=== PATIENT | female | born 1965 | race Caucasian/White ===

== ENCOUNTER → 2016-10-22 | Outpatient (CLI) | payer OTHER, MEDICARE ==
--- NOTE | 2016-10-22 14:57 | US ---
EXAMINATION TYPE: US venous doppler duplex LE RT DATE OF EXAM: 10/22/2016 2:31 PM COMPARISON: US CLINICAL HISTORY: 50-year-old female I82.401 ACUTE EMBOLISM AND THROMBOSIS OF DEEP VEINS. Right leg swelling/previous DVT, patient currently on blood thinners and has IVC in place SIDE PERFORMED: Right TECHNIQUE: The lower extremity deep venous system is examined utilizing real time linear array sonog [place] with graded compression, doppler sonography and color-flow sonography. FINDINGS: VESSELS IMAGED: External Iliac Vein (EIV) Common Femoral Vein Deep Femoral Vein Greater Saphenous Vein * Femoral Vein Popliteal Vein Small Saphenous Vein * Proximal Calf Veins (* superficial vessels) Right Leg: Negative for any acute occlusive thrombus. There is small amount of nonocclusive clot seen along the stephen extending from the external iliac vein down into the proximal calf veins. This is be tter seen on real time scanning then on the provided images. IMPRESSION: 1. No evidence for acute occlusive DVT. 2. Small amounts of chronic nonocclusive mural based clot within the deep venous system extending fro m the groin down into the upper calf.
== END | disposition home or self-care (01) ==
LOC: RADUSWWP 14:08
PROVIDERS: ATTEND Family Medicine
DX: I82.401 Acute embolism and thrombosis of unspecified deep veins of right lower extremity (principal)

== ENCOUNTER → 2016-10-25 | Outpatient (CLI) | payer OTHER, MEDICARE ==
--- NOTE | 2016-10-26 10:25 | MM ---
Reason for exam: screening (asymptomatic). Last mammogram was performed 1 year and 7 months ago. History: Family history of breast cancer in sister at age 64. Physical Findings: A clinical breast exam by your physician is recommended on an annual basis and results should be correlated with mammographic findings. MG Screening Mammo w CAD Bilateral CC and MLO view(s) were taken. Prior study comparison: April 07, 2015, bilateral MG screening mammo w CAD. December 31, 2011, bilateral digital screening mammo w/CAD. Asymmetry and size left verses right breast stable. There is no discrete abnormality. ASSESSMENT: Negative, BI-RAD 1 RECOMMENDATION: Routine screening mammogram of both breasts in 1 year.
== END | disposition home or self-care (01) ==
LOC: RADMAMWWP 07:45
PROVIDERS: ATTEND Family Medicine
DX: Z12.31 Encounter for screening mammogram for malignant neoplasm of breast (principal)

== ENCOUNTER → 2018-04-18 | Outpatient (CLI) | payer BC, MEDICARE ==
--- NOTE | 2018-04-24 14:37 | MM ---
Reason for exam: screening (asymptomatic). Last mammogram was performed 1 year and 6 months ago. History: Family history of breast cancer in sister at age 64. Physical Findings: A clinical breast exam by your physician is recommended on an annual basis and results should be correlated with mammographic findings. MG Screening Mammo w CAD Bilateral CC and MLO view(s) were taken. Prior study comparison: October 25, 2016, bilateral MG screening mammo w CAD. April 07, 2015, bilateral MG screening mammo w CAD. There are scattered fibroglandular densities. No significant changes when compared with prior studies. ASSESSMENT: Negative, BI-RAD 1 RECOMMENDATION: Routine screening mammogram of both breasts in 1 year.
== END | disposition home or self-care (01) ==
LOC: RADMAMWWP 09:21
PROVIDERS: ATTEND Obstetrics & Gynecology
DX: Z12.31 Encounter for screening mammogram for malignant neoplasm of breast (principal)
CPT/HCPCS: 77067

== ENCOUNTER → 2019-02-20 | Outpatient (CLI) | payer BC, MEDICARE ==
[2019-02-20 14:38] VITALS: BP 144/95; PULSE 69; RESP 16; TEMP 98.1
[2019-02-20 14:54] VITALS: BMI 48.7
--- NOTE | 2019-02-20 15:24 | P.BASOAP ---
Subjective Progress Note Date: 02/20/19 Principal diagnosis: Morbid obesity, nausea Patient here today for lab and assessment. Patient had her band placed initially in 2006. Was last seen 4 years ago at [facility]. Patient's weight last visit was 251 today to 249. Patient's weight at time of surgery was 267. Over the last 6 months the patient has had persistent nausea after meals and feelings of early satiety with fullness. Only rarely has food lodged in the stomach requiring regurgitation. The patient was considering conversion to sleeve gastrectomy or bypass but never followed through. Patient high risk because of personal history of severe DVT and clotting. Objective - Vital Signs Vital signs: Vital Signs Temp 98.1 F 02/20/19 14:35 Pulse 69 02/20/19 14:35 Resp 16 02/20/19 14:35 BP 144/95 02/20/19 14:35 Pulse Ox Intake & Output 02/19/19 02/20/19 02/20/19 18:59 06:59 18:59 Weight 113.171 kg - Exam Abdomen: Soft, nontender, nondistended Assessment/Plan (1) Morbid obesity Narrative/Plan: Will empty the patient's band at this time to see if this has any impact on the patient's ongoing nausea complaints. If symptoms persist would recommend EGD following that. If symptoms persist following that recommend CT abdomen and pelvis. Patient somewhat concerned as her sister was recently diagnosed with pancreatic cancer. She plans to discuss a screening CAT scan with her primary care physician as well. The patient's lap band port was palpated. The site was aseptically prepped. The Cunningham needle was advanced into the port. A total of 1.7 ml of fluid was moved. The band is now empty. Pressure was held and a sterile dressing was applied. Plan: Date: 02/20/19 Initial Weight: 122.47 kg Initial BMI: 52.7 Current Weight: 113.171 kg Current BMI: 48.7 Type of Surgery: Total Volume in Band: 0 Previous Volume: 1.7 Volume Removed: 1.7 Volume Added: Band Size:
== END ==
LOC: BARWHC3 14:13
PROVIDERS: ATTEND Surgery
DX: E66.01 Morbid (severe) obesity due to excess calories (principal); R11.0 Nausea; Z68.42 Body mass index [BMI] 45.0-49.9, adult
CPT/HCPCS: 99212

== ENCOUNTER → 2019-03-13 | Outpatient (CLI) | payer BC, MEDICARE ==
[2019-03-13 13:21] VITALS: BP 159/87; PULSE 72; RESP 16; TEMP 98.1; BMI 43.2
--- NOTE | 2019-03-13 21:00 | P.BASOAP ---
Subjective Progress Note Date: 03/13/19 Principal diagnosis: Morbid obesity Patient returns today for reevaluation. At her last visit her band was emptied. Still has nausea and feels full at times. No dysphagia or vomiting. She is frustrated by her weight gain. Mild upper abdominal discomfort. Objective - Vital Signs Vital signs: Vital Signs Temp 98.1 F 03/13/19 13:18 Pulse 72 03/13/19 13:18 Resp 16 03/13/19 13:18 BP 159/87 03/13/19 13:18 Pulse Ox Intake & Output 03/13/19 03/13/19 03/14/19 06:59 18:59 06:59 Weight 114.305 kg - Exam Abdomen: Soft, nontender, nondistended Assessment/Plan (1) Morbid obesity Narrative/Plan: Patient still having symptoms of nausea and satiety. Will proceed with upper endoscopy. If that study is normal consider CT abdomen. Patient concerned about sister with pancreatic cancer. Patient will consider possible conversion to gastric bypass. Plan: Date: 03/13/19 Initial Weight: 122.47 kg Initial BMI: 46.3 Current Weight: 114.305 kg Current BMI: 43.2 Type of Surgery: Adjustable Gastric Banding Total Volume in Band: 0 Previous Volume: Volume Removed: Volume Added: Band Size:
== END | disposition home or self-care (01) ==
LOC: BARWHC3 13:05
PROVIDERS: ATTEND Surgery
DX: E66.01 Morbid (severe) obesity due to excess calories (principal); R11.0 Nausea; R68.81 Early satiety; Z68.41 Body mass index [BMI] 40.0-44.9, adult; Z80.0 Family history of malignant neoplasm of digestive organs
CPT/HCPCS: 99211

== ENCOUNTER 2019-04-09 11:29 | Day surgery (SDC) | payer BC, MEDICARE ==
[2019-04-05 16:31] VITALS: BMI 41.1
[~2019-04-09 11:29] MED LIST: LACTATED RINGERS 1,000 ML IV SCH; LIDOCAINE 1% 20 ML VIAL (10MG/ML) FOR IV START INTRADERMA PRN
[2019-04-09 11:44] VITALS: RESP 16; TEMP 98.1
--- NOTE | 2019-04-09 12:04 | P.GSHP ---
History of Present Illness H&P Date: 04/09/19 Chief Complaint: Intractable nausea Patient here today for upper endoscopy. Patient with history of upper abdominal fullness, vague discomfort, intermittent but persistent nausea. No vomiting. No dysphagia. Patient has a history of previous LAP-BAND placement. Lap band was emptied. No upper GI thus far. 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 Past Anesthesia/Blood Transfusion Reactions: No Reported Reaction Smoking Status: Never smoker - Past Family History Mother Family Medical History: Deep Vein Thrombosis (DVT) Sister(s) Family Medical History: Cancer, Deep Vein Thrombosis (DVT) Additional Family Medical History / Comment(s): #1 SISTER - CANCER , #2 SISTER BREAST CANCER Medications and Allergies Home Medications Medication Instructions Recorded Confirmed Type Rivaroxaban [Xarelto] 20 mg PO HS 04/09/15 04/05/19 History LORazepam [Ativan] 1 mg PO HS PRN 01/17/19 04/05/19 History traMADol HCL 50 mg PO DAILY PRN 01/17/19 04/05/19 History Allergies Allergy/AdvReac Type Severity Reaction Status Date / Time hydrocodone [From Vicodin] AdvReac Nausea & Verified 04/09/19 11:38 Vomiting oxycodone [From OxyContin] AdvReac Nausea & Verified 04/09/19 11:38 Vomiting Surgical - Exam Vital Signs Temp Pulse Resp BP Pulse Ox 98.1 F 64 16 137/72 97 04/09/19 11:42 04/09/19 11:42 04/09/19 11:42 04/09/19 11:42 04/09/19 11:42 Physical exam: General: Well-developed, well-nourished HEENT: Normocephalic, sclerae nonicteric Abdomen: Nontender, nondistended Extremities: No edema Neuro: Alert and oriented Assessment and Plan (1) Intractable nausea and vomiting Narrative/Plan: Will proceed with upper endoscopy Current Visit: Yes Status: Acute Code(s): R11.2 - NAUSEA WITH VOMITING, UNSPECIFIED SNOMED Code(s): 515747400
[2019-04-09] MEDS ORDERED: PROPOFOL 10 MG/ML 20 ML VIAL IV ONE (12:08)
[2019-04-09 13:27] VITALS: BP 139/84; PULSE 66
--- NOTE | 2019-04-12 07:46 | P.PCN ---
Date of Procedure: 04/09/19 Procedure(s) Performed: Preoperative Dx: GERD, presurgical Postoperative Dx: Gastritis with small erosions Procedure: EGD with Bx Anesthesia: Sedation Endoscopist: Dr. Byrne Specimens: Antrum Endoscopic Procedure: The patient was on the endoscopy table in the left decubitus position. The Olympus gastroscope was inserted into the oropharynx and passed under direct visualization to the region of the third portion of the duodenum. From that point the scope was slowly withdrawn inspecting all surfaces carefully. There were no neoplastic inflammatory or polypoid lesions throughout the duodenum. The pylorus was widely patent. The stomach was carefully inspected. There was Gastritis present with a few small erosio. A biopsy of the antrum took place to rule out H. pylori. Retroflexion revealed a normal hiatus. The esophagus was then carefully examined. There were no neoplastic inflammatory or polypoid lesions throughout the visualized esophagus. The patient was then taken to the recovery room in stable condition per anesthesia guidelines. Recommendations: Begin antacid therapy. Await Biopsy results.
== END 2019-04-09 13:24 | disposition home or self-care (01) ==
LOC: ORWHC2ENDO 11:29
PROVIDERS: ATTEND Surgery
DX: K29.50 Unspecified chronic gastritis without bleeding (principal); K25.9 Gastric ulcer, unspecified as acute or chronic, without hemorrhage or perforation; K21.9 Gastro-esophageal reflux disease without esophagitis; Z86.711 Personal history of pulmonary embolism; Z79.01 Long term (current) use of anticoagulants; Z98.890 Other specified postprocedural states; Z92.3 Personal history of irradiation; Z85.22 Personal history of malignant neoplasm of nasal cavities, middle ear, and accessory sinuses; Z82.49 Family history of ischemic heart disease and other diseases of the circulatory system; Z80.3 Family history of malignant neoplasm of breast
CPT/HCPCS: 88305; 43239; J2704

== ENCOUNTER → 2019-05-08 | Outpatient (CLI) | payer BC, MEDICARE ==
[2019-05-08 15:13] VITALS: BP 157/97; PULSE 75; TEMP 98; BMI 44.2
--- NOTE | 2019-05-08 16:10 | P.BASOAP ---
Subjective Progress Note Date: 05/08/19 Principal diagnosis: Morbid obesity Patient returns today for follow-up. Last seen in March. He had an EGD showing gastritis with erosions. Patient states her nausea has improved. She'll feels persistent abdominal bloating and fullness with diffuse abdominal pain however. She is still concerned about her sister having been diagnosed with pancreatic cancer in the past. She started omeprazole but only takes it every 1-2 days. No vomiting. No dysphagia. Patient considering band removal and conversion. History of previous DVT. Weight increased by 6 pounds since February. Objective - Vital Signs Vital signs: Vital Signs Temp 98 F 05/08/19 15:10 Pulse 75 05/08/19 15:10 Resp BP 157/97 05/08/19 15:10 Pulse Ox Intake & Output 05/07/19 05/08/19 05/08/19 18:59 06:59 18:59 Weight 117.027 kg - Exam Abdomen: Soft, nontender, nondistended Assessment/Plan (1) Morbid obesity Narrative/Plan: Patient with ongoing nausea and abdominal pain with bloating. We'll check CT abdomen and pelvis at this time. Keep band empty for now. Patient will consider gastric bypass at [facility] as a conversion option. Plan: Date: 05/08/19 Initial Weight: 122.47 kg Initial BMI: 46.3 Current Weight: 117.027 kg Current BMI: 44.2 Type of Surgery: Total Volume in Band: 0 Previous Volume: Volume Removed: Volume Added: Band Size:
== END | disposition home or self-care (01) ==
LOC: BARWHC3 13:32
PROVIDERS: ATTEND Surgery
DX: E66.01 Morbid (severe) obesity due to excess calories (principal); Z68.41 Body mass index [BMI] 40.0-44.9, adult; D13.6 Benign neoplasm of pancreas
CPT/HCPCS: 99211

== ENCOUNTER → 2019-05-26 | Outpatient (CLI) | payer BC, MEDICARE ==
--- NOTE | 2019-05-27 14:54 | CT ---
EXAMINATION TYPE: CT abdomen pelvis w con DATE OF EXAM: 05/26/2019 COMPARISON: 07/29/2014 INDICATION: nausea, bloating, diverticulitis DLP: 1835.9 mGycm, Automated exposure control for dose reduction was used. CONTRAST: 100 mL of Isovue 300. Study performed with Oral Contrast TECHNIQUE: Axial images were obtained from above the diaphragm to the pubic rami in the axial plane a t 5 mm thick sections. Reconstructed images are reviewed on the computer in the coronal plane. FINDINGS: A lap band is present. Limited CT sections are obtained the lung bases. The lung bases are clear. CT ABDOMEN: Liver: Normal Spleen: Normal Pancreas: Normal Adrenal glands: The adrenal glands are normal. Gallbladder: Normal Kidneys: No masses are evident. No hydronephrosis is present. No cysts are present. Delayed images were obtained through the kidneys, which remain unremarkable. Aorta: Minimal Vascular calcification is within the right iliac artery. Aorta appears normal. Inferior vena cava: A filter is within the inferior vena cava below the level of the renal veins. CT PELVIS: Loops of bowel within the abdomen and pelvis are normal. A few scattered diverticuli are present wi thout adjacent inflammatory changes suggest acute diverticulitis. There are loops of bowel which are incompletely distended or lack oral contrast limiting their evaluation. Appendix: Normal as visualized. Urinary bladder: Normal. Genitourinary structures: Uterus and adnexal regions appear within normal limits. Osseous structures: No suspicious lytic or sclerotic lesions. IMPRESSIONS: 1. Mild diverticulosis without acute diverticulitis.
== END | disposition home or self-care (01) ==
LOC: RADCTMAIN 13:39
PROVIDERS: ATTEND Surgery
DX: K57.90 Diverticulosis of intestine, part unspecified, without perforation or abscess without bleeding (principal)
CPT/HCPCS: 74177; Q9967

== ENCOUNTER → 2019-09-26 | Outpatient (CLI) | payer BC, MEDICARE ==
--- NOTE | 2019-09-28 09:05 | MM ---
Reason for exam: screening (asymptomatic). Last mammogram was performed 1 year and 5 months ago. History: Patient history of other cancer. Family history of breast cancer in sister at age 64. Physical Findings: A clinical breast exam by your physician is recommended on an annual basis and results should be correlated with mammographic findings. MG Screening Mammo w CAD Bilateral CC and MLO view(s) were taken. Prior study comparison: April 18, 2018, bilateral MG screening mammo w CAD. October 25, 2016, bilateral MG screening mammo w CAD. There are scattered fibroglandular densities. No significant changes when compared with prior studies. ASSESSMENT: Negative, BI-RAD 1 RECOMMENDATION: Routine screening mammogram of both breasts in 1 year.
== END | disposition home or self-care (01) ==
LOC: RADMAMWWP 15:14
PROVIDERS: ATTEND Obstetrics & Gynecology
DX: Z12.31 Encounter for screening mammogram for malignant neoplasm of breast (principal)
CPT/HCPCS: 77067

== ENCOUNTER → 2020-10-06 | Outpatient (CLI) | payer BC, MEDICARE ==
--- NOTE | 2020-10-07 13:21 | MM ---
Reason for exam: screening (asymptomatic). Last mammogram was performed 1 year ago. History: Patient history of other cancer. Family history of breast cancer in sister at age 64. Physical Findings: A clinical breast exam by your physician is recommended on an annual basis and results should be correlated with mammographic findings. MG Screening Mammo w CAD Bilateral CC and MLO view(s) were taken. Prior study comparison: September 26, 2019, bilateral MG screening mammo w CAD. April 18, 2018, bilateral MG screening mammo w CAD. There are scattered fibroglandular densities. ASSESSMENT: Negative, BI-RAD 1 RECOMMENDATION: Routine screening mammogram of both breasts in 1 year.
== END | disposition home or self-care (01) ==
LOC: RADMAMWWP 09:32
PROVIDERS: ATTEND Obstetrics & Gynecology
DX: Z12.31 Encounter for screening mammogram for malignant neoplasm of breast (principal); Z85.9 Personal history of malignant neoplasm, unspecified; Z80.3 Family history of malignant neoplasm of breast
CPT/HCPCS: 77067

== ENCOUNTER → 2021-08-03 | Outpatient (CLI) | payer BC, MEDICARE ==
[2021-08-03 19:13] LABS: Immunoglobulin M 43.8 mg/dL (40.0-280.0)
== END | disposition home or self-care (01) ==
LOC: LABWHC1 10:46
PROVIDERS: ATTEND Otolaryngology
DX: D84.9 Immunodeficiency, unspecified (principal)
CPT/HCPCS: 36415; 82784; 82785

== ENCOUNTER → 2021-10-08 | Outpatient (CLI) | payer BC, MEDICARE ==
--- NOTE | 2021-10-09 08:22 | MM ---
Reason for Exam: Screening (asymptomatic). Last screening mammogram was performed 12 month(s) ago. Patient History: Menarche at age 15. First Full-Term at age 25. Perimenopausal. Other cancer. Sister had breast cancer, age 64. Risk Values: Marleny 5 year model risk: 2.2%. NCI Lifetime model risk: 14.0%. Prior Study Comparison: 04/18/2018 Bilateral Screening Mammogram, [facility]. 09/26/2019 Bilateral Screening Mammogram, [facility]. 10/06/2020 Bilateral Screening Mammogram, [facility]. Tissue Density: The breast tissue is almost entirely fat. Findings: Analyzed By CAD. There is no suspicious group of microcalcifications or new suspicious mass in either breast. Overall Assessment: Negative, BI-RAD 1 Management: Screening Mammogram of both breasts in 1 year. A clinical breast exam by your physician is recommended on an annual basis and results should be correlated with mammographic findings. Electronically signed and approved by: Barrington Nova DO
== END | disposition home or self-care (01) ==
LOC: RADMAMWWP 13:12
PROVIDERS: ATTEND Obstetrics & Gynecology
DX: Z12.31 Encounter for screening mammogram for malignant neoplasm of breast (principal); Z80.3 Family history of malignant neoplasm of breast; Z78.0 Asymptomatic menopausal state
CPT/HCPCS: 77063; 77067

== ENCOUNTER → 2022-12-13 | Outpatient (CLI) | payer BC, MEDICARE ==
--- NOTE | 2022-12-14 14:04 | MM ---
Reason for Exam: Screening (asymptomatic). Last mammogram was performed 1 year(s) and 2 month(s) ago. Patient History: Menarche at age 15. First Full-Term at age 25. Postmenopausal. Other cancer. Sister had breast cancer, age 64. Risk Values: Marleny 5 year model risk: 2.4%. NCI Lifetime model risk: 13.4%. Prior Study Comparison: 09/26/2019 Bilateral Screening Mammogram, [facility]. 10/06/2020 Bilateral Screening Mammogram, [facility]. 10/08/2021 Bilateral MG 3D screening mammo w/cad, [facility]. Tissue Density: There are scattered fibroglandular densities. Findings: Analyzed By CAD. Appears symmetrical and stable. No significant interval change is evident. No suspicious groups of microcalcifications, spiculated or lobular masses, architectural distortion or other secondary signs of malignancy are mammographically apparent. Overall Assessment: Benign, BI-RAD 2 Management: Screening Mammogram of both breasts in 1 year. A negative mammogram report should not preclude additional follow up of suspicious palpable abnormalities. Patient should continue monthly self breast exam. A clinical breast exam by your physician is recommended on an annual basis and results should be correlated with mammographic findings. Electronically signed and approved by: Fabio Rea D.O. Radiologis
== END | disposition home or self-care (01) ==
LOC: RADMAMWWP 09:17
PROVIDERS: ATTEND Obstetrics & Gynecology
DX: Z12.31 Encounter for screening mammogram for malignant neoplasm of breast (principal); Z78.0 Asymptomatic menopausal state; Z80.3 Family history of malignant neoplasm of breast
CPT/HCPCS: 77063; 77067

== ENCOUNTER → 2024-01-18 | Outpatient (CLI) | payer BC, MEDICARE ==
--- NOTE | 2024-01-20 19:45 | MM ---
Reason for Exam: Screening (asymptomatic). Last mammogram was performed 1 year(s) and 1 month(s) ago. Patient History: Menarche at age 15. First Full-Term at age 25. Postmenopausal. Other cancer. Sister had breast cancer, age 64. Risk Values: Marleny 5 year model risk: 2.5%. NCI Lifetime model risk: 13.1%. Prior Study Comparison: 10/06/2020 Bilateral Screening Mammogram, [facility]. 10/08/2021 Bilateral MG 3D screening mammo w/cad, [facility]. 12/13/2022 Bilateral MG 3D screening mammo w/cad, [facility]. Tissue Density: There are scattered areas of fibroglandular density. Findings: Analyzed By CAD. There is no suspicious group of microcalcifications or new suspicious mass in either breast. Overall Assessment: Negative, BI-RAD 1 Management: Screening Mammogram of both breasts in 1 year. . Patient should continue monthly self-breast exams. A clinical breast exam by your physician is recommended on an annual basis. This exam should not preclude additional follow-up of suspicious palpable abnormalities. Note on Marleny scores and lifetime risk: 1. A Marleny score greater than 3% is considered moderate risk. If this is the case, consider specialist referral to assess eligibility for a risk reducing agent. 2. If overall lifetime risk for the development of breast cancer is 20% or higher, the patient may qualify for future screening with alternating mammogram and breast MRI. [facility], , 01/20/2024 7:41 PM. Electronically signed and approved by: Charles Alexis M.D. Radiologist
== END | disposition home or self-care (01) ==
LOC: RADMAMWWP 12:36
PROVIDERS: ATTEND Obstetrics & Gynecology
CPT/HCPCS: 77063; 77067